=== PATIENT | female | born 1960 | race Caucasian/White ===

== ENCOUNTER 2022-03-22 10:42 | Emergency (ER) | payer SELFPAY ==
[2022-03-22] MEDS ORDERED: Ketorolac 60 MG/2 ML SDV IM ONE (11:59)
== END 2022-03-22 13:35 | disposition home or self-care (01) ==
LOC: MW.ED 10:42
DX: S82.65XA Nondisplaced fracture of lateral malleolus of left fibula, initial encounter for closed fracture (principal); Z88.1 Allergy status to other antibiotic agents; Z88.2 Allergy status to sulfonamides; W18.39XA Other fall on same level, initial encounter
CPT/HCPCS: 73610; 96372; 99283; J1885

== ENCOUNTER 2025-04-08 09:36 | Emergency (ER) | payer MEDICARE ==
[2025-04-08] MEDS: Fluorescein 1 MG Ophth Strip EYELF ONE (10:05)
[2025-04-08] MEDS: Tetracaine HCl/PF 0.5% 4 ML Bottle EYEBOTH ONE (10:05)
== END 2025-04-08 10:49 | disposition home or self-care (01) ==
LOC: MW.ED 09:36
DX: S05.02XA Injury of conjunctiva and corneal abrasion without foreign body, left eye, initial encounter (principal); E03.9 Hypothyroidism, unspecified; Z79.890 Hormone replacement therapy; Z79.899 Other long term (current) drug therapy; Z88.1 Allergy status to other antibiotic agents; Z88.2 Allergy status to sulfonamides; Z75.3 Unavailability and inaccessibility of health-care facilities; W20.8XXA Other cause of strike by thrown, projected or falling object, initial encounter
CPT/HCPCS: 99282; 99283; J3490